=== PATIENT | male | born 1940 | race Caucasian/White ===

== ENCOUNTER 2020-10-07 00:46 | Emergency (ER) | payer MEDICARE ==
[~2020-10-07] VITALS: Ht 182.9 cm; Wt 51.8 kg
[2020-10-07] MEDS ORDERED: FLOMAX0.4 MG PO (01:46)
[2020-10-07] MEDS ORDERED: BACTRIM DS TAB1 EACH PO (01:46)
[2020-10-07] MEDS ORDERED: ASPIRIN EC325 M1 PO (01:46)
[2020-10-07] MEDS ORDERED: AZO URINARY P99.5 MG PO (01:47)
[2020-10-07 02:09] LABS: HEMATOCRIT 38.8 % (42.0-52.0); HEMOGLOBIN 13.3 gm/dL (14.0-18.0); MCH 31.6 pg (26.0-34.0); MCHC 34.2 g/dL (28.0-37.0); MCV 92.2 fL (80.0-100.0); MPV 7.3 fl. (7.2-11.1); NUCLEATED RBCS 0 /100WBC; PLATELET COUNT* 303 thou/uL (150-400); RBC 4.21 mil/uL (4.50-6.00); RDW-CV 13.6 % (10.5-14.5); WBC 18.7 thou/uL (4.0-11.0)
[2020-10-07 02:14] LABS: CALCIUM 8.8 mg/dL (8.5-10.1); CREATININE 1.2 mg/dL (0.6-1.3); POTASSIUM 3.8 mmol/L (3.5-5.1)
[2020-10-07 02:33] LABS: ABSOLUTE LYMPHOCYTES 0.7 thou/uL (0.8-5.3); ABSOLUTE MONOCYTES 0.6 thou/uL (0.0-1.2); ABSOLUTE NEUTROPHILS 17.4 thou/uL (1.6-8.1)
[2020-10-07 02:34] LABS: PLATELET ESTIMATE ADEQUATE
[2020-10-07 03:48] LABS: ICTOTEST (BILI CONFIRMATORY) Positive (Negative); URINE BILIRUBIN 1+ (Negative); URINE BLOOD NEGATIVE (Negative); URINE CLARITY CLEAR; URINE COLOR YELLOW; URINE GLUCOSE-RANDOM 1+ (Negative); URINE KETONES 1+ (Negative); URINE LEUKOCYTES-REFLEX 2+ (Negative); URINE NITRITE-REFLEX POSITIVE (Negative); URINE PROTEIN 2+ (Negative); URINE UROBILINOGEN >= 8.0 E.U./dl (0.2-1.0)
[2020-10-07 03:51] LABS: CASTS None Seen /LPF (None Seen); CRYSTALS None Seen /LPF (None Seen); MUCUS 0-3 Light strn/LPF (None Seen); SQUAMOUS 0-3 Few /LPF (0-3); URINE RBC 3-10 Few /HPF (0-2); URINE WBC-REFLEX 0-5 Rare /HPF (0-5)
[2020-10-07] MEDS ORDERED: HYDROCODON-ACE1 EAC8 PO (04:14)
[2020-10-07] MEDS ORDERED: MIDODRINE HCL2.5 M1 PO (04:14)
[2020-10-07 04:35] VITALS: BP 95/48
--- NOTE | 2020-10-07 15:39 | EKG ---
[place] [address] ELECTROCARDIOGRAM REPORT Name: TD ESCOBAR Room: [facility]#: [id number] Admission: 10/07/20 Attend Phys: Discharge: 10/07/20 Date of : 36 Date of Service: 10/07/200 Report #: [id number] THIS REPORT FOR: //name// [facility] ED Test Date: 2020-10-07 Test Time: 00:50:11 Pat Name: TD ESCOBAR Department: Room: Gender: Director Of Instrumental Music: [place] : 1940 Requested By: Naomi Dyer Order Number: [id number] Mihir MD: Jay Durham Measurements Intervals [place] Rate: 71 P: 48 MS: 173 QRS: 38 QRSD: 95 T: 56 QT: 405 QTc: 441 Interpretive Statements Sinus rhythm Atrial premature complex Low voltage, extremity leads Minimal ST elevation, inferior leads No previous ECG available for comparison Electronically Signed On 10-07-2020 15:39:19 CDT by Jay Durham [email or web address] <ELECTRONICALLY SIGNED> By: Jay Durham MD, [facility] 10/07/20 1539 0050 0050 Jay Durham MD, [facility] /EPI
== END 2020-10-07 04:35 | disposition home or self-care (01) ==
LOC: M.ERS 00:46
PROVIDERS: Emergency Medicine
DX: S20.211A Contusion of right front wall of thorax, initial encounter (principal); Z79.2 Long term (current) use of antibiotics; Z79.82 Long term (current) use of aspirin; W19.XXXA Unspecified fall, initial encounter; Y93.89 Activity, other specified; Y92.89 Other specified places as the place of occurrence of the external cause; Y99.8 Other external cause status